=== PATIENT | female | born 1960 | race Caucasian/White ===

== ENCOUNTER 2017-10-04 06:08 | Day surgery (SDC) | payer OTHER ==
[2017-09-27 18:03] VITALS: BMI 31.7
[2017-10-04] MEDS ORDERED: LIDOCAINE 1%/EPI 1:100000 (20 ML MULTI DOSE VIAL) ONE (07:26)
[2017-10-04] MEDS ORDERED: MIDAZOLAM HCL 2 MG/2 ML SINGLE DOSE VIAL ONE ×2 (08:03→09:00)
[2017-10-04] MEDS ORDERED: PROPOFOL 20 ML ONE ×3 (08:03→08:38)
[2017-10-04] MEDS ORDERED: SUCCINYLCHOLINE CHLORIDE 200 MG/10 ML VIAL ONE (08:03)
[2017-10-04] MEDS ORDERED: ONDANSETRON 4 MG/2 ML VIAL ONE (08:04)
[2017-10-04] MEDS ORDERED: DEXAMETHASONE SOD PHOSPHATE 4 MG/1 ML VIAL ONE (08:04)
[2017-10-04] MEDS ORDERED: LIDOCAINE HCL/PF 2% SDV 5ML VIAL ONE (08:04)
[2017-10-04] MEDS ORDERED: LIDOCAINE 1%/EPI 1:100000 (50 ML MULTI DOSE VIAL) INF ONE ×3 (08:53)
[2017-10-04] MEDS ORDERED: ONDANSETRON 4 MG/2 ML VIAL IVPUSH PRN (09:14)
[2017-10-04] MEDS ORDERED: oxyCODONE HCL 5 MG TABLET PO PRN ×3 (09:14→10:11)
[2017-10-04] MEDS ORDERED: PROMETHAZINE HCL 25 MG/1 ML VIAL IVPUSH PRN (09:14)
[2017-10-04] MEDS ORDERED: BACITRACIN 15 GM TUBE TOPICAL OINTMENT ONE (09:34)
[2017-10-04] MEDS ORDERED: ONDANSETRON 4 MG/2 ML VIAL IVPB PRN (10:11)
[2017-10-04] MEDS ORDERED: LACTATED RINGERS SOLUTION 1,000 ML IV SCH (10:15)
--- NOTE | 2017-10-04 10:15 | OP ---
Operative Note - Note: Operative Date: 10/04/17 Pre-Operative Diagnosis: basal cell carcinoma Operation: flap reconstruction of right cheek. Flap revision of upper lip deformity Findings: none Post-Operative Diagnosis: Same as Pre-op Surgeon: Loc Knight Anesthesia: MAC Operative Report Dictated: Yes
[2017-10-04 11:51] VITALS: TEMP 97.8
[2017-10-04] MEDS ORDERED: oxyCODONE HCL 5 MG TABLET ONE (11:51)
[2017-10-04 12:32] VITALS: BP 109/74; PULSE 72
--- NOTE | 2017-10-04 13:52 | OP ---
DATE OF OPERATION: 10/04/2017 PROCEDURES: 1. Advancement flap reconstruction of right cheek defect from basal cell carcinoma. 2. Excision of defect on right cheek in preparation for flap reconstruction. 3. Excision of scar tissue on upper lip in preparation for flap reconstruction of upper lip deformity. 4. Rotation advancement flap of previous Declan lip switch reconstruction for treatment of postoperative deformity from upper lip reconstruction. ATTENDING SURGEON: Loc Harrington MD ANESTHESIA: Monitored sedation a total of 20 mL of 1% lidocaine with 1:100,000 epinephrine injected to the operative tissues prior to surgery. DESCRIPTION OF PROCEDURE: The patient and her family are counseled on risks, benefits, and alternatives to the procedure. Markings were made with the patient awake and aware of incisions and resulting scars. While all risks, benefits, and alternatives to the procedure are discussed and understood and agreed to proceed. The patient is brought to the operating room. She is already on doxycycline, additional antibiotics are given. Sequential compression stockings and PLACIDO hose are applied. The time-out is called. The patient, procedure, sites, sides are verified. The operative tissues are injected with 1% lidocaine 1:100,000 epinephrine after which she was prepped and draped in a standard sterile fashion and procedure is as follows. The right cheek is addressed first where the existing defect is excised entirely including its base in preparation for closure. Fresh skin edges are prepared. The skin is undermined. Hemostasis is carefully achieved with Sterling-tip cautery. The entirety of this procedure is performed in a subcutaneous plane. The skin of the medial cheek is advanced laterally. The skin of the lateral cheek is advanced medially. Jarad triangle donor sites are excised superiorly and inferiorly in order to accommodate the tissue advancement for closure. Once this is able to be done with minimized tension and no visible distortion, the closure is performed in the deep dermal plane with a series of interrupted buried 5-0 Monocryl suture. The skin is then closed along the nasolabial fold with a combination of vertically mattress 6-0 nylon suture and a running 6-0 nylon suture. Attention was then directed towards the upper lip where there are several deformities from previous Declan lip switch flap reconstruction from a basal cell carcinoma. This deformity is in persistent fullness of the flap as well as a tether-depressed scar superiorly as well as on the eunice. To address this, an incision was made along the superior border of the flap as it abuts the nasal seal. The subcutaneous plane is undermined past the scar medially and laterally on the lip exposing a deep bed of scar tissue underlying the skin flap. The scar tissue is excised evenly across the entire plane of the reconstruction. Hemostasis is meticulously achieved. The flap is partially rotated into the defect and the excess skin on the flap is excised. Deep tissue from the subcutaneous fat on the skin flap to the orbicularis lorraine muscle on the lower border are made quilting the flap to prevent further pin cushioning or collection. Three such 5-0 Monocryl quilting sutures are applied. The skin is tailored to fit into the defect. The skin edges on the recipient site of the flap are then undermined to prevent any tethering or further pin cushioning. Closure is then performed with several vertical mattress 6-0 nylon sutures and several simple 6-0 nylon skin sutures. A separate area of the reconstruction is then addressed on the eunice over the lip where an incision was made along the vertical lines for lack of skin tension. Dissection submucosally is performed to expose scar tissue within the inferior extent of the flap. This scar tissue is removed. Hemostasis is achieved, and a closure is then performed in a vertical line with excision of excess eunice with a series of interrupted buried 5-0 Monocryl sutures followed by a series of interrupted 6-0 nylon suture within the skin and eunice. The mucosa is approximated with several interrupted 5-0 chromic gut sutures. The patient is to continue on her doxycycline. She is dressed with bacitracin on all surgical sites. Awaken from anesthesia having tolerated procedure well. LOC HARRINGTON M.D. [id number]
== END 2017-10-04 12:40 | disposition home or self-care (01) ==
LOC: FASU 06:08
PROVIDERS: ATTEND Plastic Surgery
PROC: 0CX0XZZ Transfer Upper Lip, External Approach (ICD-10-PCS; 2017-10-04)
PROC: 0HX1XZZ Transfer Face Skin, External Approach (ICD-10-PCS; principal; 2017-10-04 08:45)
DX: C44.310 Basal cell carcinoma of skin of unspecified parts of face (principal); M95.2 Other acquired deformity of head; K13.0 Diseases of lips
CPT/HCPCS: 94760

== ENCOUNTER 2018-01-04 06:25 | Day surgery (SDC) | payer OTHER ==
[2017-12-31 16:48] VITALS: BMI 29.8
[2018-01-04] MEDS ORDERED: MIDAZOLAM HCL 2 MG/2 ML SINGLE DOSE VIAL ONE ×2 (07:10→07:57)
[2018-01-04] MEDS ORDERED: SUCCINYLCHOLINE CHLORIDE 200 MG/10 ML VIAL ONE (07:10)
[2018-01-04] MEDS ORDERED: PROPOFOL 20 ML ONE (07:10)
[2018-01-04] MEDS ORDERED: fentaNYL CITRATE 250 MCG/5 ML VIAL ONE (07:10)
[2018-01-04] MEDS ORDERED: ROCURONIUM BROMIDE 50 MG/5 ML VIAL ONE (07:10)
[2018-01-04] MEDS ORDERED: LIDOCAINE HCL/PF 2% SDV 5ML VIAL ONE (07:11)
[2018-01-04] MEDS ORDERED: DEXAMETHASONE SOD PHOSPHATE 4 MG/1 ML VIAL ONE (07:11)
[2018-01-04] MEDS ORDERED: LIDOCAINE 1%/EPI 1:100000 (20 ML MULTI DOSE VIAL) ONE (07:22)
[2018-01-04] MEDS ORDERED: LIDOCAINE 1%/EPI 1:100000 (50 ML MULTI DOSE VIAL) INF ONE (07:54)
--- NOTE | 2018-01-04 08:33 | OP ---
Operative Note - Note: Operative Date: 01/04/18 Pre-Operative Diagnosis: basal cell carcinoma, nasal defect Operation: excison of defect with flap reconstruction of nasal defect Post-Operative Diagnosis: Same as Pre-op Surgeon: Loc Knight Anesthesia: General
[2018-01-04] MEDS ORDERED: ONDANSETRON 4 MG/2 ML VIAL IVPB PRN (08:35)
[2018-01-04] MEDS ORDERED: oxyCODONE HCL 5 MG TABLET PO PRN ×2 (08:35)
[2018-01-04] MEDS ORDERED: LACTATED RINGERS SOLUTION 1,000 ML IV SCH (08:45)
--- NOTE | 2018-01-04 09:03 | OP ---
DATE OF OPERATION: 01/04/2018 TITLE OF PROCEDURE: 1. Nose lesion, excision of lesion in preparation for adjacent tissue transfer reconstruction. 2. Adjacent tissue transfer, local advancement flap reconstruction of nasal sidewall defect. ATTENDING SURGEON: Loc Knight MD ANESTHESIA: Monitored sedation with a total of 8 mL of 1% lidocaine with 1:100,000 epinephrine. PREOPERATIVE DIAGNOSIS: Defect from basal cell carcinoma on the right side of the right nasal sidewall. POSTOPERATIVE DIAGNOSIS: Defect from basal cell carcinoma on the right side of the right nasal sidewall. THE PROCEDURE FOLLOWS: The patient was seen in the holding area and marked on the appropriate side and site. She was brought to the operating room and placed in the supine position. Position was carefully checked by surgical and anesthesia teams. After sedation was given, the patient was injected with local anesthetic. A time-out was called. Patient, procedure, side and sites were verified. The ulcer defect was excised entirely in preparation for closure. The base was saucerized. The base was cauterized with Sheridan tip Bovie cautery. A lateral advancement flap was elevated and Burows triangles were excised superiorly and inferiorly for advancement of the tissue. The tissue was both advanced to the residual superior nasal sidewall skin and to the deep periosteal tissue underlying the wound with 5-0 Vicryl suture. Once this bears the entirety of the tension, closure of the flap was performed with a combination of interrupted and running 6-0 nylon suture. Donor sites were closed primarily. The wounds were dressed with Steri-Strips. Patient was awoken from anesthesia having tolerated the procedure well, transferred to recovery without complications. Yohannes [id number]
[2018-01-04 10:02] VITALS: TEMP 97.8
[2018-01-04] MEDS ORDERED: oxyCODONE HCL 5 MG TABLET PO ONE (10:50)
[2018-01-04] MEDS ORDERED: oxyCODONE HCL 5 MG TABLET ONE (10:50)
[2018-01-04 13:32] VITALS: BP 128/62; PULSE 87
== END 2018-01-04 12:10 | disposition home or self-care (01) ==
LOC: JASU-SURG 06:25
PROVIDERS: ATTEND Plastic Surgery
PROC: 0HX1XZZ Transfer Face Skin, External Approach (ICD-10-PCS; principal; 2018-01-04 07:30)
DX: J34.89 Other specified disorders of nose and nasal sinuses (principal); C44.310 Basal cell carcinoma of skin of unspecified parts of face
CPT/HCPCS: 94760